=== PATIENT | female | born 2000 | race Caucasian/White ===

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

== ENCOUNTER 2021-05-13 14:05 | Emergency (ER) | payer BC, MEDICAID ==
[~2021-05-13] VITALS: Ht 167.6 cm; Wt 63.5 kg
[2021-05-13] MEDS ORDERED: LORazepam 0.5 MG TAB PO ONE (14:30)
[2021-05-13 15:31] LABS: Albumin 4.2 g/dL (3.4-5.0); Anion Gap 6 (5-15); Blood Urea Nitrogen 10 mg/dL (7-18); Calcium 9.4 mg/dL (8.5-10.1); Carbon Dioxide 24 mmol/L (21-32); Chloride 109 mmol/L (98-107); Glucose 86 mg/dL (74-106); Potassium 3.6 mmol/L (3.5-5.1); Sodium 139 mmol/L (136-145)
[2021-05-13 15:33] LABS: Alanine Aminotransferase 22 U/L (13-56); Aspartate Aminotransferase 12 U/L (15-37); BUN/Creatinine Ratio 14.9; GFR African American 144 mL/min; GFR Non-African American 119 mL/min
[2021-05-13 15:38] LABS: Alkaline Phosphatase 56 U/L (45-117); Bilirubin, Total 0.4 mg/dL (0.2-1.0); Total Protein 7.9 g/dL (6.4-8.2)
[2021-05-13 17:03] LABS: Urine Bacteria NONE SEEN /hpf (None Seen); Urine Blood Negative /uL (Negative); Urine Specific Gravity 1.007 (1.001-1.035); Urine WBC 2 /hpf (0 - 5)
[2021-05-13 17:28] VITALS: BP 114/67
== END 2021-05-13 17:47 | disposition home or self-care (01) ==
LOC: ER 14:05
DX: R07.89 Other chest pain (principal)
CPT/HCPCS: 36415; 80053; 81001; 84443; 84484; 93005